=== PATIENT | female | born 1955 | race African-American/Black ===

== ENCOUNTER 2017-11-26 10:07 | Day surgery (SDC) | payer OTHER ==
[2017-11-25 14:06] VITALS: BMI 26.5
[2017-11-26] MEDS ORDERED: EPINEPHrine 1 MG/ML AMP ONE (10:44)
[2017-11-26] MEDS ORDERED: Midazolam HCl 2 mg/2 ml Vial ONE (11:05)
[2017-11-26] MEDS ORDERED: Fentanyl 100 MCG/2 ML VIAL ONE ×4 (11:05→12:59)
--- NOTE | 2017-11-26 12:37 | OP ---
DATE OF PROCEDURE: 11/26/2017 SURGEON: Dr. Zackary Esparza PREOPERATIVE DIAGNOSIS: Base of tongue lesion. POSTOPERATIVE DIAGNOSES: Base of tongue mucocele, large obstructive mucocele. PROCEDURE PERFORMED: 1. Direct laryngoscopy. 2. Transoral excision of large obstructing base of tongue mucocele. PROCEDURE IN DETAIL: After consent was obtained, the patient was identified, brought to the operatin g room and placed on the table in supine position. General endotracheal anesthesia was obtained. Th e patient was positioned for surgery. We underwent systematic direct laryngoscopy of the oropharynx, oral cavity, hypopharynx, and larynx and the patient was found to have an approximately 3 cm bulky m ucocele that retro displacing the epiglottis. We then removed the laryngoscope and the larynx was fo und to be normal as was the hypopharynx. We removed the laryngoscope and was able to place a Sadia-D aurelio mouth gag, with a large blade this nicely delineated the superior aspect of the mass, it was the n grasped with a curved Allis, retracted into the posterior oropharynx, with a Schleicher tip we were a ble to excise the cyst without puncturing it from the vallecular mucosa. The cyst was sent for histo logic evaluation. Hemostasis was obtained. The patient was awakened, extubated[facility] prior to discharge home.
[2017-11-26] MEDS ORDERED: Ondansetron HCl/PF 4 MG/2 ML Vial ONE (13:12)
[2017-11-26] MEDS ORDERED: Glycopyrrolate 0.2 MG/ML 5 ML SYRINGE ONE (13:12)
[2017-11-26] MEDS ORDERED: PROPOFOL 200 MG/20 ML VIAL ONE (13:12)
[2017-11-26] MEDS ORDERED: Lidocaine 1% PF 5 ML VIAL ONE (13:12)
[2017-11-26] MEDS ORDERED: Dexamethasone 20 MG/5 ML VIAL ONE (13:12)
[2017-11-26] MEDS ORDERED: PHENYLEPHRINE-NS 100 MCG/ML 10 ML SYRINGE ONE (13:12)
[2017-11-26] MEDS ORDERED: diphenhydrAMINE 50 MG/ML VIAL ONE (13:33)
[2017-11-26] MEDS ORDERED: Promethazine HCl 25 MG/ML VIAL ONE (14:04)
--- NOTE | 2017-11-26 20:30 | EKG ---
Test Reason : PREOP Blood Pressure : / mmHG Vent. Rate : 072 BPM Atrial Rate : 072 BPM P-R Int : 126 ms QRS Dur : 084 ms QT Int : 392 ms P-R-T Axes : 063 050 052 degrees QTc Int : 429 ms Normal sinus rhythm Normal ECG No previous ECGs available Confirmed by DR. Cheli DOYLE MD ([id number]) on 11/26/2017 8:30:33 PM Referred By: MEENU Confirmed By:DR. Cheli DOYLE MD
== END 2017-11-26 15:53 | disposition home or self-care (01) ==
LOC: SDC 10:07
PROVIDERS: ATTEND Specialist
PROC: 0CJS8ZZ Inspection of Larynx, Via Natural or Artificial Opening Endoscopic (ICD-10-PCS; principal; 2017-11-26)
PROC: 0CB7XZZ Excision of Tongue, External Approach (ICD-10-PCS; principal; 2017-11-26)
DX: J38.7 Other diseases of larynx (principal); E11.9 Type 2 diabetes mellitus without complications; Z87.891 Personal history of nicotine dependence; Z91.018 Allergy to other foods; Z88.0 Allergy status to penicillin; Z79.84 Long term (current) use of oral hypoglycemic drugs; Z79.899 Other long term (current) drug therapy
CPT/HCPCS: 36415; 85014; 88304; 93005; 93010; 96374; J0171; J1200; J2250; J2550; J3010